=== PATIENT | female | born 1945 | race Two or more races ===

== ENCOUNTER → 2022-05-14 10:53 | Outpatient (BNVA) | payer MEDICARE, SELFPAY | PROVIDERS: PCP Internal Medicine; Visit Provider Internal Medicine Rheumatology | DX: M19.012 Primary osteoarthritis, left shoulder (principal); M19.011 Primary osteoarthritis, right shoulder; M19.041 Primary osteoarthritis, right hand; M19.042 Primary osteoarthritis, left hand; M79.7 Fibromyalgia; M81.0 Age-related osteoporosis without current pathological fracture; Z79.899 Other long term (current) drug therapy | CPT/HCPCS: 20610; 99212 ==

== ENCOUNTER 2023-06-10 05:02 | Outpatient (REF) | payer MEDICARE, SELFPAY | END 2023-06-10 05:03 | disposition home or self-care (01) | LOC: HO.HOSX 05:02 | PROVIDERS: Visit Provider Orthopaedic Surgery | DX: Z13.89 Encounter for screening for other disorder (principal) ==

== ENCOUNTER 2023-06-24 14:09 | Outpatient (REF) | payer MEDICARE, SELFPAY | END 2023-06-24 14:10 | disposition home or self-care (01) | LOC: HO.HOSX 14:09 | PROVIDERS: Visit Provider Orthopaedic Surgery | DX: Z13.89 Encounter for screening for other disorder (principal) ==